=== PATIENT | male | born 1970 | race Caucasian/White ===

== ENCOUNTER 2018-06-22 07:28 | Emergency (ER) | payer BC, OTHER ==
--- NOTE | 2018-06-22 07:57 | ER ---
Nurse's Notes [facility] Name: Jordon Moss Age: 48 yrs Sex: Male : 1970 Arrival Date: 06/22/2018 Time: 07:32 Bed 20 Private MD: Diagnosis: Epistaxis Presentation: 06/22 07:37 Presenting complaint: Patient states: I have been having intermittent nose bleeding la1 since Tuesday, no bleeding so far today. Transition of care: patient was not received from another setting of care. Onset of symptoms was June 22, 2018. Risk Assessment: Do you want to hurt yourself or someone else? Patient reports no desire to harm self or others. Initial Sepsis Screen: Does the patient meet any 2 criteria? No. Patient's initial sepsis screen is negative. Does the patient have a suspected source of infection? No. Patient's initial sepsis screen is negative. Care prior to arrival: None. 07:37 Method Of Arrival: Ambulatory la1 07:37 Acuity: GRADY 4 la1 Triage Assessment: 07:49 General: Appears in no apparent distress. uncomfortable, Behavior is calm, cooperative, hj appropriate for age. Pain: Denies pain. EENT: Reports nasal discharge that is bloody. Neuro: Cardiovascular: Capillary refill < 3 seconds Patient's skin is warm and dry. Respiratory: Airway is patent Respiratory effort is even, unlabored, Respiratory pattern is regular, symmetrical. GI: No signs and/or symptoms were reported involving the gastrointestinal system. : No signs and/or symptoms were reported regarding the genitourinary system. Derm: No signs and/or symptoms reported regarding the dermatologic system. Musculoskeletal: No signs and/or symptoms reported regarding the musculoskeletal system. Historical: - Allergies: 07:37 No Known Allergies; la1 - PMHx: 07:37 None; la1 - Immunization history:: Adult Immunizations up to date. - Social history:: Smoking status: Patient/guardian denies using tobacco. - Ebola Screening: : No symptoms or risks identified at this time. - Family history:: not pertinent. - Hospitalizations: : No recent hospitalization is reported. Screenin:48 Abuse screen: Denies threats or abuse. Denies injuries from another. Nutritional hj screening: No deficits noted. Tuberculosis screening: No symptoms or risk factors identified. Fall Risk None identified. Assessment: 07:50 Reassessment: see triage for assessment;. hj Vital Signs: 07:38 Pulse 97; Resp 16; Temp 97.6; Pulse Ox 100% on R/A; Weight 104.33 kg; Height 5 ft. 11 la1 in. (180.34 cm); 07:39 BP 129 / 100; la1 07:38 Body Mass Index 32.08 (104.33 kg, 180.34 cm) la1 ED Course: 07:32 Patient arrived in ED. rg4 07:37 Triage completed. la1 07:38 Arm band placed on left wrist. la1 07:40 Dagoberto Deleon MD is Attending Physician. rn 07:48 Han Stout, RICK is Primary Nurse. hj 07:49 Patient has correct armband on for positive identification. Bed in low position. Call hj light in reach. Side rails up X 1. 07:53 No provider procedures requiring assistance completed. Patient did not have IV access hj during this emergency room visit. Administered Medications: No medications were administered Outcome: 07:53 Discharged to home ambulatory. hj 07:53 Condition: stable 07:53 Discharge instructions given to patient, Instructed on discharge instructions, follow up and referral plans. Demonstrated understanding of instructions, follow-up care, Following a medical screening exam, the patient was provided information regarding alternative care sites and resources available per registration personnel. 07:57 Discharge ordered by . rn 08:04 Patient left the ED. cc3 Signatures: Dagoberto Deleon MD MD rn Attema, Lee, RN RN laHan Casas, Guillermina Chu RN rg4 Eve Nicole cc3
--- NOTE | 2018-06-22 07:57 | EDPHYS ---
Physician Documentation [facility] Name: Jordon Moss Age: 48 yrs Sex: Male : 1970 Arrival Date: 06/22/2018 Time: 07:32 Bed 20 Private MD: ED Physician Dagoberto Deleon HPI: 06/22 07:53 This 48 yrs old Male presents to ER via Ambulatory with complaints of Nose rn Bleed. 07:53 The patient presents with a nose bleed. Onset: The symptoms/episode began/occurred 1 rn week(s) ago. Associated signs and symptoms: Loss of consciousness: the patient experienced no loss of consciousness, Pertinent positives: bleeding, Pertinent negatives: fever, lightheadedness, shortness of breath. Severity of symptoms: At their worst the symptoms were mild in the emergency department the symptoms have resolved. The patient has not experienced similar symptoms in the past. Reports nosebleed intermittent for 1 week, no trauma, seen at [facility] recently for this, resolved, hasn't bled since last night, not on blood thinners. . Historical: - Allergies: 07:37 No Known Allergies; la1 - PMHx: 07:37 None; la1 - Immunization history:: Adult Immunizations up to date. - Social history:: Smoking status: Patient/guardian denies using tobacco. - Ebola Screening: : No symptoms or risks identified at this time. - Family history:: not pertinent. - Hospitalizations: : No recent hospitalization is reported. ROS: 07:53 Constitutional: Negative for fever, chills, and weight loss, Eyes: Negative for injury, rn pain, redness, and discharge, ENT: + nosebleed Respiratory: -- sob Skin: Negative for injury, rash, and discoloration, Neuro: neg for syncope Exam: 07:53 Constitutional: This is a well developed, well nourished patient who is awake, alert, rn and in no acute distress. Head/Face: Normocephalic, atraumatic. ENT: Right nare with dry blood, no active bleeding Vital Signs: 07:38 Pulse 97; Resp 16; Temp 97.6; Pulse Ox 100% on R/A; Weight 104.33 kg; Height 5 ft. 11 la1 in. (180.34 cm); 07:39 BP 129 / 100; la1 07:38 Body Mass Index 32.08 (104.33 kg, 180.34 cm) la1 MDM: 07:40 Patient medically screened. rn 07:53 Differential diagnosis: spontaneous epistaxis. Data reviewed: vital signs, nurses rn notes, and as a result, I will discharge patient. Counseling: I had a detailed discussion with the patient and/or guardian regarding: the historical points, exam findings, and any diagnostic results supporting the discharge/admit diagnosis, the need for outpatient follow up, to return to the emergency department if symptoms worsen or persist or if there are any questions or concerns that arise at home. Special discussion: I discussed with the patient/guardian in detail that at this point there is no indication for admission to the hospital. It is understood, however, that if the symptoms persist or worsen the patient needs to return immediately for re-evaluation. Based on the history and exam findings, there is no indication for further emergent testing or inpatient evaluation. I discussed with the patient/guardian the need to see the ENT specialist for further evaluation of the symptoms. 07:53 ED course: Given nasal clamps and instructed how to manage nosebleeds at home. . rn Administered Medications: No medications were administered Disposition: 06/22/18 07:57 Discharged to Home as Medical Screen. Impression: Epistaxis. - Condition is Stable. - Discharge Instructions: Nosebleed, Adult. - Medication Reconciliation Form, Thank You Letter, Antibiotic Education, Prescription Opioid Use, Work release form form. - Follow up: Private Physician; When: As needed; Reason: Recheck today's complaints, Re-evaluation by your physician. - Problem is an ongoing problem. - Symptoms have improved. Signatures: Dagoberto Deleon MD MD rn Attema, Lee, RN RN la1 Eve Nicole cc3 Corrections: (The following items were deleted from the chart) 08:04 07:57 06/22/2018 07:57 Discharged to Home as Medical Screen. Impression: Epistaxis. cc3 Condition is Stable. Forms are Work release form, Medication Reconciliation Form, Thank You Letter, Antibiotic Education, Prescription Opioid Use. Follow up: Private Physician; When: As needed; Reason: Recheck today's complaints, Re-evaluation by your physician. Problem is an ongoing problem. Symptoms have improved. rn
== END 2018-06-22 08:04 | disposition home or self-care (01) ==
LOC: ER 07:28
DX: R04.0 Epistaxis (principal)
CPT/HCPCS: 99281